=== PATIENT | male | born 1980 | race Caucasian/White ===

== ENCOUNTER 2017-10-14 18:57 | Emergency (ER) | payer BC ==
[2017-10-14] MEDS ORDERED: Lidocaine 1% MPF* 2 ML VIAL INJ ONE (19:05)
[2017-10-14] MEDS ORDERED: NS 0.9% 1000 ML* 1,000 ML IV ONE (19:17)
[2017-10-14 19:32] VITALS: BP 140/81
--- NOTE | 2017-10-14 20:18 | UC ---
Sree Pichardo Rebecca, scribed for Denys Ridley MD on 10/14/17 at 1924 . Laceration HPI - HPI Summary HPI Summary: Pt is a 37 y/o M who presents to [facility] with a laceration. While at home today, an open razor blade was on a counter. The razor blade fell onto his thigh, causing a laceration. Pressure dressing was applied [employer]. Associated pain is currently moderate, ranked 7/10. Pt reports blood from the laceration was squirting really high, reportedly above his head. - History Of Current Complaint Chief Complaint: UCLaceration Stated Complaint: THIGH LAC Time Seen by Provider: 10/14/17 19:05 Hx Obtained From: Patient Laceration Location: Thigh - Left Mechanism Of Injury: Sharp Trauma - Razor Onset/Duration: Sudden Onset Severity: Moderate Pain Intensity: 7 Pain Scale Used: 0-10 Numeric Aggravating Factors: Nothing - Allergies/Home Medications Allergies/Adverse Reactions: Allergies Allergy/AdvReac Type Severity Reaction Status Date / Time No Known Allergies Allergy Verified 10/14/17 19:20 Home Medications: Home Medications Otc Allergy 1 tab PO DAILY 10/14/17 [History] PMH/Surg Hx/FS Hx/Imm Hx - Additional Past Medical History Additional PMH: NEGATIVE PMHx: CAD, HTN, DM Respiratory History: Asthma - Surgical History Surgical History: None - Family History Known Family History: Positive: Cardiac Disease, Diabetes - Social History Alcohol Use: None Substance Use Type: None Smoking Status (MU): Never Smoked Tobacco Review of Systems Constitutional: Negative Skin: Other - Left thigh laceration Eyes: Negative ENT: Negative Respiratory: Negative Cardiovascular: Negative Gastrointestinal: Negative Genitourinary: Negative Motor: Negative Neurovascular: Negative Musculoskeletal: Negative Neurological: Negative Psychological: Negative All Other Systems Reviewed And Are Negative: Yes Physical Exam - Summary Physical Exam Summary: General: well-appearing, no pain distress Skin: warm, color reflects adequate perfusion, dry, 2 cm laceration on the left leg on the medial aspect, just superior to the knee. When the pressure dressing is removed, it shoots blood, reported to be going above the patients head. Head: normal Eyes: EOMI, NINA ENT: normal Neck: supple, nontender Respiratory: CTA, breath sounds present Cardiovascular: RRR, positive dorsalis pedis and posterior tibial pulses and good capillary refill in the left leg Abdomen: soft, nontender Bowel: present Musculoskeletal: normal, strength/ROM intact Neurological: sensory/motor intact, A&O x3 Psychological: affect/mood appropriate Triage Information Reviewed: Yes Vital Signs: Initial Vital Signs Temp 97.8 F 10/14/17 19:19 Pulse 80 10/14/17 19:19 Resp 16 10/14/17 19:19 BP 138/95 10/14/17 19:19 Pulse Ox 98 10/14/17 19:19 Vital Signs Reviewed: Yes Laceration Course/Dx - Course/Dx Course Of Treatment: THE PATIENT REPORTS PULSING, SPURTING BLEEDING THAT ONLY STOPPED WITH A PRESSURE DRESSING. UPON REMOVAL OF THIS DRESSING IN THE CLINIC, THE BLOOD SHOT UP ABOVE THE PATIENT'S HEAD. PT AND DP PULSES PALPATED. DISTAL CAP REFIL NORMAL. WITH THE CONCERN OF ARTERIAL BLEED, I SENT THE PATIENT BY AMBULANCE TO THE NEAREST ED WITH VASCULAR; DANAE MARINO. VSS ON TRANSFER. - Differential Dx - Laceration/Wound Provider Diagnoses: LEFT LEG ARTERIAL LACERATION Discharge - Sign-Out/Discharge Documenting (check all that apply): Discharge/Admit/Transfer - Transfer - Discharge Plan Condition: Stable Disposition: TRANS [facility] FAC Patient Education Materials: Laceration (ED) Referrals: Yina Rick MD [Primary Care Provider] - - Billing Disposition and Condition Condition: STABLE Disposition: EMTALA The documentation as recorded by the Sree crowder Rebecca accurately reflects the service I personally performed and the decisions made by me, Denys Ridley MD.
== END 2017-10-14 19:37 | disposition short-term general hospital (02) ==
LOC: UCEAST 18:57
DX: S71.112A Laceration without foreign body, left thigh, initial encounter (principal); W26.8XXA Contact with other sharp object(s), not elsewhere classified, initial encounter; Y93.9 Activity, unspecified; Y92.009 Unspecified place in unspecified non-institutional (private) residence as the place of occurrence of the external cause; J45.909 Unspecified asthma, uncomplicated
CPT/HCPCS: 12001; 96360; 99203; G0463

== ENCOUNTER 2018-12-15 12:37 | Emergency (ER) | payer BC ==
[2018-12-15 17:07] LABS: ABS Lymphocytes 1.2 10^3/ul (1.0-4.8); ABS Monocytes 0.4 10^3/ul (0-0.8); ABS Neutrophils 4.2 10^3/ul (1.5-7.7); Eosinophil % 0.8 %; Hematocrit 45 % (42-52); Hemoglobin 15.6 g/dL (14.0-18.0); Lymphocyte % 20.3 %; Mean Corpuscular HGB Conc 35 g/dL (31-36); Mean Corpuscular Hemoglobin 31 pg (27-31); Mean Corpuscular Volume 88 fL (80-94); Nucleated Red Blood Cells % 0.1; Platelet Count 182 10^3/uL (150-450); Red Blood Count 5.08 10^6 /uL (4.18-5.48); Red Cell Distribution Width 13 % (10-15); White Blood Count 5.9 10^3/uL (3.5-10.8)
[2018-12-15 17:17] LABS: INR 1.14 (0.82-1.09)
[2018-12-15 17:42] LABS: Albumin 4.6 g/dL (3.2-5.2); Calcium 9.6 mg/dL (8.6-10.3); Potassium 4.2 mmol/L (3.5-5.0); Total Bilirubin 1.1 mg/dL (0.2-1.0)
[2018-12-15 17:48] LABS: Albumin/Globulin Ratio 1.4 (1-3); BUN/Creatinine Ratio 14.9 (8-20); C Reactive Protein 2.07 mg/L (<8.01); EGFR Non-African American 82.7 (>60); Globulin 3.2 g/dL (2-4); Total Protein 7.8 g/dL (6.4-8.9)
[2018-12-15 18:34] VITALS: BP 148/87
--- NOTE | 2018-12-16 06:37 | ED ---
Nausea/Vomiting/Diarrhea HPI - HPI Summary HPI Summary: Patient is a 38yo M presenting to the ED with nausea and vomiting this morning after a bike ride. He states he was concerned as there were small specks of blood in his, approximately "10%." He states he was concerned as he has a hx of GERD. Sxs a few weeks ago was improved after taking a 2 week course of Omeprazole, but returned after he discontinued the medication. Pt states GERD like symptoms of epigastric pain returned. Today, after his bike ride, he developed nausea and one episode of vomiting. He states he has also had diarrhea and constipation intermittently over the past few months. He does have follow-up with GI in 2 weeks. Denies any abdominal pain. Denies any nausea at this time. Denies any headaches, fevers, sweats, chills or other sxs. - History of Current Complaint Chief Complaint: EDGIBleed Stated Complaint: VOMITING BLOOD PER PT Time Seen by Provider: 12/15/18 15:16 Hx Obtained From: Patient Onset/Duration: Sudden Onset Timing: Constant Severity Initially: Mild Severity Currently: None Pain Intensity: 0 Pain Scale Used: 0-10 Numeric Aggravating Factor(s): Nothing Alleviating Factor(s): Nothing Nausea/Vomiting Presence: Vomiting Nausea/Vomiting Duration: 0-12 hours Vomiting Characteristics: Bloody - Risk Factors Influenza Risk Factors: Negative Surgical Obstruction Risk Factor(s): Negative - Allergies/Home Medications Allergies/Adverse Reactions: Allergies Allergy/AdvReac Type Severity Reaction Status Date / Time No Known Allergies Allergy Verified 12/15/18 12:43 PMH/Surg Hx/FS Hx/Imm Hx Previously Healthy: Yes Respiratory History: Reports: Hx Asthma - Immunization History Hx Pertussis Vaccination: No Immunizations Up to Date: Yes Infectious Disease History: No Infectious Disease History: Denies: Traveled Outside the [place] in Last 30 Days - Family History Known Family History: Positive: Cardiac Disease, Diabetes - Social History Occupation: Employed Full-time Lives: With Family Alcohol Use: Daily Hx Substance Use: No Substance Use Type: Reports: None Hx Tobacco Use: No Smoking Status (MU): Former Smoker Review of Systems Negative: Fever, Chills, Fatigue, Skin Diaphoresis Negative: Palpitations, Chest Pain Negative: Shortness Of Breath, Cough Positive: Vomiting, Nausea Genitourinary: Negative Positive: no symptoms reported, see HPI Negative: Arthralgia, Myalgia Skin: Negative All Other Systems Reviewed And Are Negative: Yes Physical Exam Triage Information Reviewed: Yes Vital Signs On Initial Exam: Initial Vitals Temp Pulse Resp BP Pulse Ox 98.9 F 68 16 147/92 99 12/15/18 12:39 12/15/18 12:39 12/15/18 12:39 12/15/18 12:39 12/15/18 12:39 Vital Signs Reviewed: Yes Appearance: Positive: Well-Appearing, Well-Nourished Skin: Positive: Warm, Skin Color Reflects Adequate Perfusion Eyes: Positive: EOMI, NINA, Conjunctiva Clear Neck: Positive: Supple, No Lymphadenopathy Respiratory/Lung Sounds: Positive: Clear to Auscultation, Breath Sounds Present Cardiovascular: Positive: RRR, Pulses are Symmetrical in both Upper and Lower Extremities Musculoskeletal: Positive: Normal, Strength/ROM Intact Neurological: Positive: Alert, Oriented to Person Place, Time AVPU Assessment: Alert Diagnostics - Vital Signs Vital Signs Temp Pulse Resp BP Pulse Ox 12/15/18 18:33 98.3 F 61 16 148/87 99 12/15/18 18:00 60 99 12/15/18 17:42 59 134/89 99 12/15/18 17:13 66 141/97 99 12/15/18 17:00 66 98 12/15/18 16:43 59 130/89 97 12/15/18 16:12 63 145/94 99 12/15/18 16:00 72 98 12/15/18 15:56 73 99 12/15/18 15:42 72 144/88 98 12/15/18 12:39 98.9 F 68 16 147/92 99 - Laboratory Lab Results: Lab Results 12/15/18 12/15/18 12/15/18 Range/Units 17:00 17:00 17:00 WBC 5.9 (3.5-10.8) 10^3/uL RBC 5.08 (4.18-5.48) 10^6 /uL Hgb 15.6 (14.0-18.0) g/dL Hct 45 (42-52) % MCV 88 (80-94) fL MCH 31 (27-31) pg MCHC 35 (31-36) g/dL RDW 13 (10-15) % Plt Count 182 (150-450) 10^3/uL MPV 8.0 (7.4-10.4) fL Neut % (Auto) 72.2 % Lymph % (Auto) 20.3 % [place] % (Auto) 6.1 % Eos % (Auto) 0.8 % Baso % (Auto) 0.6 % Absolute Neuts (auto) 4.2 (1.5-7.7) 10^3/ul Absolute Lymphs (auto) 1.2 (1.0-4.8) 10^3/ul Absolute Monos (auto) 0.4 (0-0.8) 10^3/ul Absolute Eos (auto) 0.0 (0-0.6) 10^3/ul Absolute Basos (auto) 0.0 (0-0.2) 10^3/ul Absolute Nucleated RBC 0.0 10^3/ul Nucleated RBC % 0.1 INR (Anticoag Therapy) 1.14 H (0.82-1.09) Sodium 138 (135-145) mmol/L Potassium 4.2 (3.5-5.0) mmol/L Chloride 105 (101-111) mmol/L Carbon Dioxide 24 (22-32) mmol/L Anion Gap 9 (2-11) mmol/L BUN 15 (6-24) mg/dL Creatinine 1.01 (0.67-1.17) mg/dL Est GFR ( Amer) 100.0 (>60) Est GFR (Non-Af Amer) 82.7 (>60) BUN/Creatinine Ratio 14.9 (8-20) Glucose 90 (70-100) mg/dL Calcium 9.6 (8.6-10.3) mg/dL Total Bilirubin 1.10 H (0.2-1.0) mg/dL AST 22 (13-39) U/L ALT 21 (7-52) U/L Alkaline Phosphatase 60 (34-104) U/L C-Reactive Protein 2.07 (<8.01) mg/L Total Protein 7.8 (6.4-8.9) g/dL Albumin 4.6 (3.2-5.2) g/dL Globulin 3.2 (2-4) g/dL Albumin/Globulin Ratio 1.4 (1-3) Result Diagrams: 12/15/18 17:00 12/15/18 17:00 Lab Statement: Any lab studies that have been ordered have been reviewed, and results considered in the medical decision making process. Naus/Vom/Diarrhea Course/Dx - Course Course Of Treatment: Patient's evaluated for one episode of hematemesis this morning. He denies drinking any alcohol last evening. He states he woke up this morning and noticed bicycle along distance, and immediately following had one episode of emesis with streaks of blood. He states he feels well now, denies any nausea vomiting or abdominal pain. He does endorse intermittent diarrhea and constipation over the past several months and has a follow-up with GI on January 04. Physical examination is benign, lungs CTA, RRR, no abdominal pain or tenderness throughout. No pharyngeal erythema or cervical lymphadenopathy. Labs obtained which show normal H&H. Discussed findings with patient. He is OK for discharge at this time and will f/u as scheduled with GI. - Differential Dx/Diagnosis Provider Diagnosis: Hematemesis Condition At Discharge: Stable Discharge - Sign-Out/Discharge Documenting (check all that apply): Patient Departure Patient Received Moderate/Deep Sedation with Procedure: No - Discharge Plan Condition: Stable Disposition: HOME Prescriptions: Omeprazole 40 mg PO DAILY #30 capsule. Patient Education Materials: Diet for Stomach Ulcers and Gastritis (ED), Epigastric Pain (ED) Referrals: Yina Rick MD [Primary Care Provider] - Additional Instructions: As discussed, follow-up with GI on January 05 If he develop any worsening or changing symptoms, return to the ED Omeprazole 40 mg once daily x 30 days - Billing Disposition and Condition Condition: STABLE Disposition: Home
== END 2018-12-15 18:00 | disposition home or self-care (01) ==
LOC: ED 12:37
DX: K92.0 Hematemesis (principal); R10.13 Epigastric pain; Z87.891 Personal history of nicotine dependence
CPT/HCPCS: 36415; 80053; 85025; 85610; 86140; 99282